=== PATIENT | female | born 1950 | race Caucasian/White ===

== ENCOUNTER → 2017-04-03 | Outpatient (CLI) | payer OTHER ==
--- NOTE | 2017-04-03 16:56 | PCVCIMAG ---
EXAM: BILATERAL LOWER EXTREMITY ARTERIAL DUPLEX INDICATION: Peripheral Arterial Disease. Leg pain. FINDINGS: Right Leg: Satisfactory arterial waveforms in the common femoral and profunda femoral arteries and the superficial femoral and popliteal arteries without significant stenosis. The peroneal and posterior tibial arteries are patent. Occlusion of the distal anterior tibial artery. Left Leg: Satisfactory arterial waveforms in the common femoral and profunda femoral arteries and the superficial femoral and popliteal arteries without significant stenosis. The peroneal and posterior tibial arteries are patent. Occlusion of the distal anterior tibial artery. 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 Otherwise no flow-limiting stenosis seen in either lower extremity. Good two-vessel runoff bilaterally. LOC:[id number]
== END | disposition home or self-care (01) ==
LOC: PCVCIMAG 14:49
PROVIDERS: ATTEND Nuclear Medicine Nuclear Cardiology
DX: I73.9 Peripheral vascular disease, unspecified (principal); I77.1 Stricture of artery; L97.828 Non-pressure chronic ulcer of other part of left lower leg with other specified severity
CPT/HCPCS: 93925